=== PATIENT | female | born 1965 | race Caucasian/White ===

== ENCOUNTER 2019-05-12 16:26 | Emergency (ER) | payer OTHER ==
[~2019-05-12] VITALS: Ht 170.2 cm; Wt 81.8 kg
[2019-05-12 17:55] VITALS: BP 143/77
== END 2019-05-12 18:06 | disposition home or self-care (01) ==
LOC: EMS 16:32
DX: S81.852A Open bite, left lower leg, initial encounter (principal); F17.210 Nicotine dependence, cigarettes, uncomplicated; W54.0XXA Bitten by dog, initial encounter; Y93.89 Activity, other specified; Y92.89 Other specified places as the place of occurrence of the external cause; Y99.8 Other external cause status
CPT/HCPCS: 99406

== ENCOUNTER 2020-08-29 13:44 | Emergency (ER) | payer OTHER ==
[~2020-08-29] VITALS: Ht 167.6 cm; Wt 86.4 kg
[2020-08-29] MEDS ORDERED: PredniSONE 20 MG TABLET PO ONE (15:00)
[2020-08-29 15:27] LABS: BASOPHILS % (AUTO) 0.5 % (0.0-2.0); EOSINOPHILS % (AUTO) 9.2 % (1.0-6.0); HEMATOCRIT 50.6 % (36-46); HEMOGLOBIN 17.1 g/dL (12.0-16.0); LYMPHOCYTES # (AUTO) 2.1 K/uL (1.0-4.8); LYMPHOCYTES % (AUTO) 25.5 % (22.0-44.0); MEAN CORPUSCULAR HEMOGLOBIN 31.1 pg (26.0-34.0); MEAN CORPUSCULAR HGB CONC 33.9 G/dL (31.0-37.0); MEAN CORPUSCULAR VOLUME 92 fL (80-100); MONOCYTES # (AUTO) 0.7 K/uL (0.1-1.0); MONOCYTES % (AUTO) 8.4 % (2.0-9.0); NEUTROPHILS # (AUTO) 4.7 K/uL (1.8-7.7); NEUTROPHILS % (AUTO) 56.4 % (40.0-70.0); PLATELET COUNT (AUTO) 274 K/uL (150-450); RED CELL DISTRIBUTION WIDTH 13.2 % (11.5-14.5)
[2020-08-29] MEDS: ALBUTEROL SULFATE HFA 90 MCG/PUFF 8 GM INHALER IH ONE ×2 (15:31→16:49)
[2020-08-29 15:40] LABS: ANION GAP 13 mmol/L (8-16); CALCIUM, TOTAL 9.1 mg/dL (8.8-10.5); CARBON DIOXIDE 23 mmol/L (22-29); CHLORIDE 105 mmol/L (98-107); CREATININE 0.58 mg/dL (0.60-1.30); GLOMERULAR FILTR. RATE CALC > 60 mL/min (>60); GLUCOSE,RANDOM 123 mg/dL (70-110); POTASSIUM 3.8 mmol/L (3.5-5.1); SODIUM SERUM 141 mmol/L (136-145); UREA NITROGEN, BLOOD 17 mg/dL (7-18)
[2020-08-29 15:49] LABS: ALANINE AMINOTRANSFERASE 57 U/L (12-78); ALBUMIN 3.4 g/dL (3.4-5.0); ALKALINE PHOSPHATASE 128 U/L (46-116); ASPARTATE AMINOTRANSFERASE 32 U/L (15-37); BILIRUBIN,TOTAL 0.5 mg/dL (0.1-1.0); TOTAL PROTEIN, SERUM 7.9 g/dL (6.4-8.2)
[2020-08-29 16:03] LABS: B-TYPE NATRIURETIC PEPTIDE 6 pg/mL (0-100)
[2020-08-29 17:33] VITALS: BP 138/81
== END 2020-08-29 17:59 | disposition home or self-care (01) ==
LOC: EMS 13:46
DX: J40 Bronchitis, not specified as acute or chronic (principal); Z77.118 Contact with and (suspected) exposure to other environmental pollution; F17.210 Nicotine dependence, cigarettes, uncomplicated
CPT/HCPCS: 36415; 71045; 80053; 83880; 84484; 85025; 93005; 94640; 99285; J7512; J3535

== ENCOUNTER 2021-10-13 17:00 | Emergency (ER) | payer OTHER ==
[~2021-10-13] VITALS: Ht 162.6 cm; Wt 81.0 kg
[2021-10-13] MEDS ORDERED: MULT400T5 PO (17:03)
[2021-10-13 17:57] LABS: BASOPHILS % (AUTO) 0.5 % (0.0-2.0); EOSINOPHILS % (AUTO) 6.9 % (1.0-6.0); HEMATOCRIT 50.4 % (36-46); LYMPHOCYTES # (AUTO) 2.6 K/uL (1.0-4.8); LYMPHOCYTES % (AUTO) 25.8 % (22.0-44.0); MEAN CORPUSCULAR HEMOGLOBIN 30.6 pg (26.0-34.0); MEAN CORPUSCULAR HGB CONC 33.6 G/dL (31.0-37.0); MEAN CORPUSCULAR VOLUME 91 fL (80-100); MONOCYTES # (AUTO) 0.8 K/uL (0.1-1.0); MONOCYTES % (AUTO) 8.3 % (2.0-9.0); NEUTROPHILS # (AUTO) 5.8 K/uL (1.8-7.7); NEUTROPHILS % (AUTO) 58.5 % (40.0-70.0); PLATELET COUNT (AUTO) 264 K/uL (150-450); RED BLOOD CELL COUNT(AUTO) 5.54 MIL/uL (4.00-5.20); RED CELL DISTRIBUTION WIDTH 13.4 % (11.5-14.5)
[2021-10-13 18:06] LABS: APPEARANCE,URINE CLEAR (CLEAR); BILIRUBIN,URINE NEGATIVE (NEGATIVE); GLUCOSE, URINE (UA) NEGATIVE (NEGATIVE); KETONES,URINE NEGATIVE (NEGATIVE); LEUKOCYTE ESTERASE ,URINE LARGE (NEGATIVE); NITRATE,URINE NEGATIVE (NEGATIVE); OCCULT BLOOD,URINE SMALL (NEGATIVE); PROTEIN,URINE TRACE mg/dL (NEGATIVE); SPECIFIC GRAVITIY, URINE 1.026 (1.003-1.030)
[2021-10-13 18:07] LABS: ANION GAP 8 mmol/L (8-16); CALCIUM, TOTAL 9.5 mg/dL (8.8-10.5); CARBON DIOXIDE 26 mmol/L (22-29); CHLORIDE 106 mmol/L (98-107); CREATININE 0.89 mg/dL (0.60-1.30); GLUCOSE,RANDOM 113 mg/dL (70-110); POTASSIUM 3.8 mmol/L (3.5-5.1); SODIUM SERUM 140 mmol/L (136-145); UREA NITROGEN, BLOOD 17 mg/dL (7-18)
[2021-10-13 18:13] LABS: GLOMERULAR FILTR. RATE CALC > 60 mL/min (>60)
[2021-10-13 18:14] LABS: ALANINE AMINOTRANSFERASE 24 U/L (12-78); ALBUMIN 3.7 g/dL (3.4-5.0); ALKALINE PHOSPHATASE 103 U/L (46-116); ASPARTATE AMINOTRANSFERASE 22 U/L (15-37); BILIRUBIN,TOTAL 0.7 mg/dL (0.1-1.0); TOTAL PROTEIN, SERUM 8.3 g/dL (6.4-8.2)
[2021-10-13 18:19] VITALS: BP 154/96
[2021-10-13 18:23] LABS: BACTERIA,URINE Few /HPF (None Seen)
[2021-10-13] MEDS ORDERED: METR70GE5 VG (18:42)
[2021-10-13] MEDS ORDERED: PHEN-846 PO (18:42)
[2021-10-13] MEDS ORDERED: ACET-66 PO (18:42)
[2021-10-13] MEDS ORDERED: CEPH-558 PO (18:42)
[2021-10-13] MEDS ORDERED: MICO45CR16 VG (18:42)
== END 2021-10-13 18:57 | disposition home or self-care (01) ==
LOC: EMS 17:02
DX: N39.0 Urinary tract infection, site not specified (principal); N76.0 Acute vaginitis; F17.210 Nicotine dependence, cigarettes, uncomplicated
CPT/HCPCS: 80053; 81001; 85025; 87086; 99283

== ENCOUNTER 2023-03-28 09:11 | Emergency (ER) | payer OTHER ==
[~2023-03-28] VITALS: Ht 162.6 cm; Wt 75.0 kg
[~2023-03-28 09:11] MED LIST: ACET-66 PO; CEPH-558 PO; METR70GE5 VG; MICO45CR16 VG; MULT400T5 PO; PHEN-846 PO
[2023-03-28 09:15] VITALS: TEMP 97.9
[2023-03-28] MEDS ORDERED: ALBUTEROL SULFATE 2.5 MG/0.5 ML 5 ML NEB SOLUTION NEB ONE (09:30)
[2023-03-28] MEDS ORDERED: MethylPREDNISolone SOD SUCC 125 MG/2 ML VIAL IVP ONE (09:30)
[2023-03-28] MEDS ORDERED: IPRATROPIUM BROMIDE 0.5 MG/2.5 ML NEB SOLUTION NEB ONE (09:30)
[2023-03-28] MEDS ORDERED: 0.9% SODIUM CHLORIDE 15 ML NEB SOLUTION NEB ONE (09:39)
[2023-03-28 09:43] VITALS: PULSE 78; RESP 19; O2SAT 98
[2023-03-28 10:08] LABS: BASOPHILS % (AUTO) 0.5 % (0.0-2.0); EOSINOPHILS % (AUTO) 4.1 % (1.0-6.0); HEMATOCRIT 50.9 % (36-46); HEMOGLOBIN 17.3 g/dL (12.0-16.0); LYMPHOCYTES # (AUTO) 1.6 K/uL (1.0-4.8); LYMPHOCYTES % (AUTO) 16.4 % (22.0-44.0); MEAN CORPUSCULAR HEMOGLOBIN 31.4 pg (26.0-34.0); MEAN CORPUSCULAR VOLUME 92 fL (80-100); MONOCYTES # (AUTO) 0.7 K/uL (0.1-1.0); MONOCYTES % (AUTO) 6.9 % (2.0-9.0); NEUTROPHILS # (AUTO) 7.2 K/uL (1.8-7.7); NEUTROPHILS % (AUTO) 72.1 % (40.0-70.0); PLATELET COUNT (AUTO) 236 K/uL (150-450); RED BLOOD CELL COUNT(AUTO) 5.52 MIL/uL (4.00-5.20); RED CELL DISTRIBUTION WIDTH 13.1 % (11.5-14.5); WHITE BLOOD COUNT (AUTO) 9.9 K/uL (4.5-11.0)
[2023-03-28 10:28] LABS: TROPONIN I-HIGH SENSITIVITY 6 ng/L (<51)
[2023-03-28 10:32] LABS: ANION GAP 9 mmol/L (8-16); B-TYPE NATRIURETIC PEPTIDE 23 pg/mL (0-100); CARBON DIOXIDE 25 mmol/L (22-29); CHLORIDE 102 mmol/L (98-107); CREATININE 0.56 mg/dL (0.60-1.30); GLOMERULAR FILTR. RATE CALC > 60 mL/min (>60); GLUCOSE,RANDOM 110 mg/dL (70-110); SODIUM SERUM 136 mmol/L (136-145); UREA NITROGEN, BLOOD 10 mg/dL (7-18)
[2023-03-28 10:39] LABS: ALANINE AMINOTRANSFERASE 61 U/L (12-78); ALBUMIN 3.4 g/dL (3.4-5.0); ALKALINE PHOSPHATASE 123 U/L (46-116); ASPARTATE AMINOTRANSFERASE 46 U/L (15-37); BILIRUBIN,TOTAL 0.9 mg/dL (0.1-1.0); CREATINE KINASE, TOTAL ONLY 53 U/L (26-192); TOTAL PROTEIN, SERUM 8.4 g/dL (6.4-8.2)
[2023-03-28 10:56] VITALS: PULSE 94; RESP 20; O2SAT 94
[2023-03-28 10:57] LABS: COVID AG,FIA SOURCE NASAL SWAB
[2023-03-28] MEDS ORDERED: MAGNESIUM SULFATE 1 GM in DEXTROSE 5%-WATER 50 ML IV ONE (11:00)
[2023-03-28 11:19] LABS: SARS-COV2 (COVID) ANTIGEN,FIA Negative (Negative)
[2023-03-28 11:20] LABS: INFLUENZA TYPE A NEGATIVE FOR TYPE A (NEGATIVE); INFLUENZA TYPE B NEGATIVE FOR TYPE B (NEGATIVE)
[2023-03-28] MEDS ORDERED: ALBUTEROL SULFATE HFA 90 MCG/PUFF 8 GM INHALER IH ONE (11:30)
[2023-03-28] MEDS ORDERED: PRED-554 PO (11:30)
[2023-03-28 12:13] VITALS: BP 143/72; PULSE 99; RESP 14
== END 2023-03-28 13:25 | disposition home or self-care (01) ==
LOC: EMS 09:14
DX: J44.1 Chronic obstructive pulmonary disease with (acute) exacerbation (principal); E83.42 Hypomagnesemia; F17.210 Nicotine dependence, cigarettes, uncomplicated; Z98.890 Other specified postprocedural states; Z20.822 Contact with and (suspected) exposure to COVID-19
CPT/HCPCS: 99285; 96365; 71045; 96375; 87426; 80053; 82550; 83735; 83880; 84484; 85025; 87804; 36415; 94644; 93005; J2930; Q9967; J7060; J3475; J3535

== ENCOUNTER 2025-02-16 15:10 | Emergency (ER) | payer OTHER ==
[~2025-02-16] VITALS: Ht 162.6 cm; Wt 81.8 kg
[~2025-02-16 15:10] MED LIST changes: +METR70GE VG; -METR70GE5 VG; +PRED-554 PO
[2025-02-16 15:13] VITALS: TEMP 98.2
[2025-02-16 15:37] LABS: APPEARANCE,URINE CLEAR (CLEAR); GLUCOSE, URINE (UA) NEGATIVE (NEGATIVE); LEUKOCYTE ESTERASE ,URINE LARGE (NEGATIVE); NITRATE,URINE NEGATIVE (NEGATIVE); OCCULT BLOOD,URINE NEGATIVE (NEGATIVE); SPECIFIC GRAVITIY, URINE 1.025 (1.003-1.030)
[2025-02-16 15:54] LABS: SQUAMOUS EPITHELIAL CELL,UR Rare /LPF (None Seen)
[2025-02-16 16:21] LABS: PLATELET COUNT (AUTO) 268 K/uL (150-450); RED BLOOD CELL COUNT(AUTO) 5.57 MIL/uL (4.00-5.20); RED CELL DISTRIBUTION WIDTH 13.5 % (11.5-14.5); WHITE BLOOD COUNT (AUTO) 8.1 K/uL (4.5-11.0)
[2025-02-16] MEDS: CEPHALEXIN MONOHYDRATE 500 MG CAPSULE PO ONE (17:24)
[2025-02-16] MEDS: IBUPROFEN 400 MG TABLET PO ONE (17:24)
[2025-02-16] MEDS: KETOROLAC TROMETHAMINE 30 MG/ML VIAL IM ONE (17:40)
[2025-02-16] MEDS: LIDOCAINE 5% TRANSDERMAL PATCH TD ONE (17:41)
[2025-02-16] MEDS ORDERED: CEPH-558 PO (18:24)
[2025-02-16 19:01] VITALS: BP 134/79; PULSE 75; RESP 18; O2SAT 98
== END 2025-02-16 19:11 | disposition home or self-care (01) ==
LOC: EMS 15:10
DX: N39.0 Urinary tract infection, site not specified (principal); F17.210 Nicotine dependence, cigarettes, uncomplicated; Z98.890 Other specified postprocedural states; Z79.52 Long term (current) use of systemic steroids; Z79.899 Other long term (current) drug therapy
CPT/HCPCS: 99284; 81001; 85025; 87086; 36415; 96372; J1885